=== PATIENT | male | born 1980 | race Caucasian/White ===

== ENCOUNTER 2016-09-07 20:44 | Emergency (ER) | payer OTHER ==
[2016-09-07] MEDS ORDERED: IBUPROFEN 600 MG TABLET ONE (21:46)
[2016-09-07] MEDS ORDERED: SULFAMETHOXAZOLE 800 MG/TRIMETHOPRIM 160 MG TABLET ONE (21:46)
[2016-09-07] MEDS ORDERED: CEPHALEXIN 500 MG CAPSULE ONE (21:46)
[2016-09-07] MEDS ORDERED: ACETAMINOPHEN 325 MG TABLET ONE (21:46)
== END 2016-09-07 21:57 | disposition home or self-care (01) ==
LOC: ED 20:44
DX: L02.11 Cutaneous abscess of neck (principal)
CPT/HCPCS: 99283 ×2; A9270 ×4